=== PATIENT | male | born 1970 | race Caucasian/White ===

== ENCOUNTER 2017-03-15 15:15 | Emergency (ER) | payer MEDICAID ==
[~2017-03-15] VITALS: Ht 165.1 cm; Wt 83.9 kg
[2017-03-15 15:27] VITALS: BP_SYST 113
[2017-03-15] MEDS ORDERED: ONDANSETRON HCL 4 MG/2 ML VIAL IVP ONE (15:30)
[2017-03-15 15:51] LABS: BILIRUBIN,URINE 1+ (NEGATIVE); BLOOD, URINE NEGATIVE (NEGATIVE); CLARITY/URINE HAZY (CLEAR); COLOR,URINE YELLOW (YELLOW); GLUCOSE,URINE NEGATIVE (NEGATIVE); KETONES,URINE NEGATIVE (NEGATIVE); LEUKOCYTE ESTERASE ,URINE NEGATIVE (NEGATIVE); NITRITE, URINE NEGATIVE (NEGATIVE); PH,URINE 5.5 (5.0-8.0); PROTEIN URINE 1+ (NEGATIVE); UROBILINOGEN,URINE 0.2 (0.2-1.0)
[2017-03-15] MEDS ORDERED: NACL 0.9% 1,000 ML IV ONE (16:15)
[2017-03-15] MEDS ORDERED: MORPHINE 4 MG/ML INJ. SYRINGE IVP ONE (16:15)
[2017-03-15 16:19] LABS: MEAN CORPUSCULAR HGB CONC 33 % (32-36)
[2017-03-15 16:26] LABS: HEMATOCRIT 51.8 % (36-54); HEMOGLOBIN 17.3 g/dL (14.0-18.0); MEAN CORPUSCULAR HEMOGLOBIN 29 pg (27-31); MEAN CORPUSCULAR VOLUME 88 fL (79.0-98.0); PLATELET COUNT (AUTO) 289 K/uL (130-430); RED BLOOD CELL COUNT(AUTO) 5.87 MIL/uL (4.2-6.2); RED CELL DISTRIBUTION WIDTH 12.2 % (9.0-15.0); WHITE BLOOD COUNT (AUTO) 18.9 K/uL (4.8-10.8)
[2017-03-15 16:29] LABS: CALCIUM 9.7 mg/dL (8.4-11.0); CREATININE 1.25 mg/dL (0.55-1.30)
[2017-03-15 16:31] LABS: PROTHROMBIN TIME 10.5 SECS (9.5-12.5)
[2017-03-15 16:32] LABS: BACTERIA,URINE FEW /HPF (None Seen); RBC,URINE 0-3 /HPF (0-3); WBC,URINE 0-3 /HPF (0-3)
[2017-03-15 16:33] LABS: HYALINE CASTS, URINE 0-10 /LPF (None Seen); MUCUS,URINE 3+ /LPF (None Seen)
[2017-03-15 16:34] LABS: TOTAL BILIRUBIN 0.4 mg/dL (0.0-1.0); TOTAL PROTEIN, SERUM 9.1 g/dL (6.4-8.3)
[2017-03-15 17:07] LABS: ATYPICAL LYMPHOCYTES % 0 % (0-0); BAND % (MANUAL) 8 % (0-6); BASOPHILS % (MANUAL) 0 % (0-2); EOSINOPHILS % (MANUAL) 2 % (0-7); LYMPHOCYTES % (MANUAL) 4 % (20-46); MONOCYTES % (MANUAL) 5 % (0-11)
[2017-03-15 19:28] VITALS: BP_SYST 115
== END 2017-03-15 19:28 | disposition home or self-care (01) ==
LOC: SED 15:15
DX: R10.9 Unspecified abdominal pain (principal); R11.2 Nausea with vomiting, unspecified; R19.7 Diarrhea, unspecified; D72.829 Elevated white blood cell count, unspecified; E11.9 Type 2 diabetes mellitus without complications; I10 Essential (primary) hypertension; E78.5 Hyperlipidemia, unspecified
CPT/HCPCS: 36415; 74176; 76700; 80053; 81000; 83690; 85007; 85027; 85610; 85730; 93005; 96361; 96374; 99285; J2405; J7030

== ENCOUNTER 2019-01-26 20:19 | Emergency (ER) | payer MEDICAID ==
[~2019-01-26] VITALS: Ht 162.6 cm; Wt 83.9 kg
[~2019-01-26 20:19] MED LIST: GLYB1TAB3 PO; LISI-209 PO
[2019-01-26 20:33] VITALS: BP_SYST 150
--- NOTE | 2019-01-26 20:40 | NUR ---
Patient triaged and placed in waiting room. VSS and patient appears in no acute distress at this time. Accompanied by family, awaiting available bed, and MD notified of need for MSE.
--- NOTE | 2019-01-26 20:45 | NUR ---
Patient to ER bed H1 for evaluation. Side rails up. Report given to María RUSHING.
--- NOTE | 2019-01-26 20:46 | NUR ---
Pt c/o neighbor's dog biting him to left calf. Minimal abrasions to left calf. Pt denies N/V, fever. Pt able to ambulate. No other injuries/complaints per patient or noted.
--- NOTE | 2019-01-26 21:11 | NUR ---
ER Dr. Prado at bedside examining patient.
[2019-01-26 21:27] VITALS: BP_SYST 141
--- NOTE | 2019-01-26 21:27 | NUR ---
Patient given written and verbal discharge instructions and verbalizes understanding. ER MD discussed with patient the results and treatment provided. Patient in stable condition. ID arm band removed. Rx of Augmentin given. Patient educated on pain management and to follow up with PMD. Pain Scale 0. Opportunity for questions provided and answered. Medication side effect fact sheet provided.
== END 2019-01-26 21:27 | disposition home or self-care (01) ==
LOC: SED 20:19
DX: S80.872A Other superficial bite, left lower leg, initial encounter (principal); S80.812A Abrasion, left lower leg, initial encounter; E11.9 Type 2 diabetes mellitus without complications; I10 Essential (primary) hypertension; E78.5 Hyperlipidemia, unspecified; Z88.0 Allergy status to penicillin; Z88.6 Allergy status to analgesic agent; Z79.899 Other long term (current) drug therapy; W54.0XXA Bitten by dog, initial encounter; Y93.89 Activity, other specified; Y92.89 Other specified places as the place of occurrence of the external cause; Y99.8 Other external cause status
CPT/HCPCS: 99283

== ENCOUNTER 2021-11-27 17:30 | Emergency (ER) | payer MEDICAID ==
[~2021-11-27] VITALS: Ht 167.6 cm; Wt 83.5 kg
[2021-11-27 17:54] VITALS: BP_SYST 106
--- NOTE | 2021-11-27 18:00 | NUR ---
Pt brought by self, A&Ox4, pt presents to ER with N/V and diarrhea since this am, BS 236, hX of diabetes, skin pink and warm, cap refill <3, VSS.
[2021-11-27 19:27] LABS: BASOPHILS # (AUTO) 0.1 K/uL (0.0-0.2); BASOPHILS % (AUTO) 0.5 % (0.0-2.0); EOSINOPHILS # (AUTO) 0.3 K/uL (0.0-0.4); EOSINOPHILS % (AUTO) 2.3 % (0.0-4.0); HEMATOCRIT 48.8 % (36-54); HEMOGLOBIN 16.3 g/dL (14.0-18.0); LYMPHOCYTES # (AUTO) 0.8 K/uL (1.0-5.5); LYMPHOCYTES % (AUTO) 7.1 % (20.5-51.5); MEAN CORPUSCULAR HEMOGLOBIN 30 pg (27-31); MEAN CORPUSCULAR HGB CONC 33 % (32-36); MEAN CORPUSCULAR VOLUME 89 fL (79.0-98.0); MONOCYTES # (AUTO) 0.6 K/uL (0.0-1.0); NEUTROPHILS # (AUTO) 9.4 K/uL (1.8-7.7); NEUTROPHILS % (AUTO) 85.1 % (40.0-70.0); PLATELET COUNT (AUTO) 272 K/uL (130-430); RED CELL DISTRIBUTION WIDTH 13.2 % (9.0-15.0)
[2021-11-27 19:30] LABS: ANION GAP 12 (5-15); CALCIUM 8.4 mg/dL (8.4-11.0); CHLORIDE 100 mmol/L (98-107); CREATININE 0.82 mg/dL (0.55-1.30); GLUCOSE 253 mg/dL (70-99); POTASSIUM 4.6 mmol/L (3.5-5.1); SODIUM SERUM 134 mmol/L (136-145); UREA NITROGEN, BLOOD 23 mg/dL (8-21)
[2021-11-27 19:45] LABS: GFR AFRICAN AMERICAN 128 mL/min (>90)
[2021-11-27 19:49] LABS: ALANINE AMINOTRANSFERASE 50 U/L (12-78); ALBUMIN 4.1 g/dL (3.4-4.8); ASPARTATE AMINOTRANSFERASE 22 U/L (10-37); LIPASE 78 U/L (73-393); TOTAL BILIRUBIN 0.4 mg/dL (0.0-1.0)
--- NOTE | 2021-11-27 20:10 | NUR ---
Dr Ruggiero evaluating patient at bedside
--- NOTE | 2021-11-27 20:29 | NUR ---
Patient to ER bed H1 to gown for evaluation. Side rails up.
[2021-11-27] MEDS ORDERED: NACL 0.9% 1,000 ML IV ONE (20:30)
--- NOTE | 2021-11-27 20:44 | NUR ---
Pt awake a/o x4. speech clear and coherent. c/o abd pain 5/10. c/o nausea, vomit x 7, diarrhea x 6 times. denies fever. denies sob. iv access established to lac #20g blood drawn and sent to lab. will continue to monitor.
--- NOTE | 2021-11-27 21:46 | NUR ---
Pt ambulated to bathroom with steady gait unassisted. urine collected and sent to lab.
[2021-11-27] MEDS ORDERED: ONDA-8 TL (22:06)
--- NOTE | 2021-11-27 22:13 | NUR ---
Pt discharged. Pt awake a/o x4. aci reviewed with pt, verbalized understanding. rx to be filled. to follow up with pmd within the next 2-3 days or return to ed if condition worsens. vs stable. iv d/c'd with no s/sx of complications noted. iv catheter intact. ambulatory with steady gait unassisted. nad.
[2021-11-27 22:14] VITALS: BP_SYST 132
== END 2021-11-27 22:14 | disposition home or self-care (01) ==
LOC: SED 17:30
DX: R11.2 Nausea with vomiting, unspecified (principal); E11.65 Type 2 diabetes mellitus with hyperglycemia; I10 Essential (primary) hypertension; Z88.0 Allergy status to penicillin; Z88.6 Allergy status to analgesic agent; Z79.899 Other long term (current) drug therapy
CPT/HCPCS: 36415; 80053; 82962; 83605; 83690; 84484; 85025; 93005; 96360; 99284; J7030

== ENCOUNTER 2023-01-22 19:04 | Emergency (ER) | payer MEDICAID ==
[~2023-01-22] VITALS: Ht 165.1 cm; Wt 77.1 kg
[~2023-01-22 19:04] MED LIST changes: +ONDA-8 TL
[2023-01-22 19:15] VITALS: BP_SYST 125
[2023-01-22] MEDS ORDERED: BACITRACIN 1 GM OINT TP ONE ×2 (20:42→20:45)
[2023-01-22] MEDS ORDERED: DIPH-TET Vacc 0.5 ML VIAL I.M. ONE (20:45)
[2023-01-22 22:26] VITALS: BP_SYST 125
== END 2023-01-22 22:26 | disposition home or self-care (01) ==
LOC: SED 19:04
DX: S01.312A Laceration without foreign body of left ear, initial encounter (principal); S61.217A Laceration without foreign body of left little finger without damage to nail, initial encounter; E11.9 Type 2 diabetes mellitus without complications; I10 Essential (primary) hypertension; E78.5 Hyperlipidemia, unspecified; Z88.0 Allergy status to penicillin; Z88.6 Allergy status to analgesic agent; Z79.899 Other long term (current) drug therapy; W27.8XXA Contact with other nonpowered hand tool, initial encounter; Y93.89 Activity, other specified; Y92.89 Other specified places as the place of occurrence of the external cause; Y99.8 Other external cause status
CPT/HCPCS: 90714; 99283

== ENCOUNTER 2023-01-24 21:57 | Emergency (ER) | payer MEDICAID ==
[~2023-01-24] VITALS: Ht 165.1 cm; Wt 79.4 kg
[2023-01-24 22:24] VITALS: BP_SYST 127
[2023-01-24] MEDS ORDERED: IBUP-1969 PO (22:39)
[2023-01-24] MEDS ORDERED: BACI15OI13 TP (22:39)
[2023-01-24 22:56] VITALS: BP_SYST 116
== END 2023-01-24 22:55 | disposition home or self-care (01) ==
LOC: SED 21:57
DX: Z48.00 Encounter for change or removal of nonsurgical wound dressing (principal); E11.9 Type 2 diabetes mellitus without complications; I10 Essential (primary) hypertension; E78.5 Hyperlipidemia, unspecified; Z88.0 Allergy status to penicillin; Z88.6 Allergy status to analgesic agent; Z79.899 Other long term (current) drug therapy
CPT/HCPCS: 99282

== ENCOUNTER 2023-04-06 09:48 | Emergency (ER) | payer MEDICAID ==
[~2023-04-06] VITALS: Ht 157.5 cm; Wt 79.4 kg
[~2023-04-06 09:48] MED LIST changes: +BACI15OI13 TP; +IBUP-1969 PO
[2023-04-06 09:59] VITALS: BP_SYST 124; PULSE 77; RESP 17; TEMP 97.4; O2SAT 98
[2023-04-06] MEDS ORDERED: PROPARACAINE (OPTHANINE 0.5%) 15 ML DROPS OP ONE (10:30)
[2023-04-06] MEDS ORDERED: FLUORESCEIN SODIUM 1 MG OPHTHALMIC STRIP OP ONE (10:30)
[2023-04-06] MEDS ORDERED: FLOEARD RIGHT EYE (11:19)
[2023-04-06] MEDS ORDERED: IBUP-1971 PO (11:19)
[2023-04-06 11:34] VITALS: BP_SYST 125; PULSE 74; RESP 17; TEMP 97.3; O2SAT 97
== END 2023-04-06 11:35 | disposition home or self-care (01) ==
LOC: SED 09:48
DX: H10.89 Other conjunctivitis (principal); H57.11 Ocular pain, right eye; H53.141 Visual discomfort, right eye; E11.9 Type 2 diabetes mellitus without complications; I10 Essential (primary) hypertension; E78.5 Hyperlipidemia, unspecified; Z88.0 Allergy status to penicillin; Z88.6 Allergy status to analgesic agent; Z79.899 Other long term (current) drug therapy
CPT/HCPCS: 99283